=== PATIENT | female | born 1990 | race Two or more races ===

== ENCOUNTER 2025-03-02 10:05 | Outpatient (AMB) | payer OTHER, SELFPAY ==
--- NOTE | 2025-03-02 10:14 | A.OFFPC_ITS ---
Vital Signs 03/02/25 10:19 Height 5 ft 11 in Weight 244 lb BMI 34.0 BP 120/82 Blood Pressure Location Lt brachial Position Sitting Pulse 70 Pulse Source Pulse Oximeter Temp 98.2 F Temp Source Temporal Artery Scan Pulse Oximetry (%) 97 Oxygen Delivery Method Room Air Intake Visit Reasons: New Patient Bead Picker Required: No Accompanied by: Self / Same As Patient Allergies lamotrigine Allergy (Severe, Verified 03/02/25 10:23) Hives Medication List - Last Reconciled 03/02/25 by Lorene Araiza MD ibuprofen (IBU) 600 mg PO Q6H Tobacco use date assessed: 03/02/25 Dental Screening Dental Screen Date: 03/02/25 Did you have a dental visit in the last 12 months?: Yes Did you have a dental problem in the last 6 months where you did not have access to dental care?: No HPI HPI Comments History of Present Illness Details The patient is a 35 year old female presenting with evaluation of [id number] low back pain with sciatica and to establish care. Low back pain with sciatica: The patient reports an acute exacerbation of low back pain that started about a month ago after she stepped off a ladder incorrectly while painting. She has a history of right-sided sciatica, which had been successfully managed with hourly caregiver for about a year and a half. Following the recent incident, her pain worsened to the point where she could not walk, leading to an emergency room visit at [facility], where she was diagnosed with piriformis syndrome, advised bed rest, and told to take ibuprofen and Tylenol. As her condition continued to worsen, she went to [facility] on , where she received steroids and Valium. Her current symptoms include difficulty with stairs, a pinching sensation when stepping forward, and numbness in her leg after sitting for a period or sleeping on her side. She reports a pain score of 4 out of 10 at baseline which is tolerable. She had an x-ray at an ortho urgent care which reportedly showed some spine curvature and degeneration. For pain management she has been taking ibuprofen every six hours since the which she has taken in combination with Tylenol in the past, and she has seen her chiropractor three times since the injury. She also finds relief with alternating ice and heat, and is taking fish oil, magnesium, and turmeric, as well as doing red light therapy. Severe eczema: The patient reports a history of severe eczema, which is her main active medical issue aside from the back pain. She has identified that nuts and carbohydrates can trigger breakouts and she manages this by limiting her intake of these foods. She usually manages flare-ups with hydrocortisone. History of herpes simplex virus: The patient is positive for herpes, which she contracted at age 19. She reports she has not had a breakout in years. History of ruptured vaginal cyst: While on vacation in [place], she experienced a ruptured vaginal cyst/gland, for which she was treated in an emergency room with IV antibiotics and Motrin. She had noticed a small bump that grew larger before it burst. She did not have a follow-up appointment as the issue resolved. Family History: - Ovarian cancer: Two maternal aunts. - Breast cancer: One maternal aunt, dece ased. - Mother: Healthy, had a benign breast l ump. - Father: Described as being in [facility], now . - Maternal grandmother: Has diabetes. [facility] Medical History (Updated 03/03/25 @ 08:31 by Lorene Araiza MD) Eczema Elevated white blood cell count Lumbar degenerative disc disease Back pain of lumbar region with sciatica Family History (Updated 03/02/25 @ 10:52 by Lorene Araiza MD) Mother No problems noted. Father No problems noted. Maternal Aunt Ovarian cancer Breast cancer Social History Housing: House Patient Tobacco Use Status: Never used Tobacco e-Cigarette/Vaping Use: Never Used service: No Current occupational status: employed Cognitive needs: No Hearing needs: No Vision needs: No Questionnaire PHQ-9 Over the last 2 weeks, how often have you been bothered by any of the following problems? 1. Little interest or pleasure in doing things: not at all 2. Feeling down, depressed, or hopeless: not at all 3. Trouble falling or staying asleep, or sleeping too much: not at all 4. Feeling tired or having little energy: not at all 5. Poor appetite or overeating: not at all 6. Feeling bad about yourself - or that you are a failure or have let yourself or your family down: not at all 7. Trouble concentrating on things, such as reading the newspaper or watching television: not at all 8. Moving or speaking so slowly that other people could have noticed. Or the opposite - being so fidgety or restless that you have been moving around a lot more than usual: not at all 9. Thoughts that you would be better off or of hurting yourself in some way: not at all Total score: 0 Depression Screening Interpretation: Negative Depression Screening Done: Yes Source: Developed by Drs. Oscar Cobb, Lucia Perla, Josh howard nd colleagues, with an educational abby from [employer]. Thrive Questionnaire Date Thrive assessed: 03/02/25 I am a: Patient What is your living situation today?: I have a steady place to live Within the past 12 months, did the food you bought not last and you didn't have the money to get more?: Never true Within the past 12 months, did you worry whether your food would run out before you got money to buy more?: Never true Do you have trouble paying for medicines?: No Do you have trouble getting transportation to medical appointments?: No Do you have trouble paying your heating and electricity bill?: No Do you have trouble taking care of your child, family member or friend?: No Do you have trouble with day-to-day activities such as bathing, preparing meals, shopping, managing finances, etc.?: No Are you currently unemployed and looking for a job?: No Are you interested in more education?: No Please select the resources that you would like help with: None Currently or been in a relationship where the following occur: No concerns reported THRIVE Score: 0 AUDIT C Alcohol Use Questionnaire (AUDIT-C) 1. How often do you have a drink containing alcohol?: Monthly or less 2. How many drinks containing alcohol do you have on a typical day when you are drinking?: 1 or 2 3. How often do you have six or more drinks on one occasion?: Never Total Score: 1 STACIE-7 AMB Questionnaire STACIE-7 Date STACIE - 7 assessed: 03/02/25 Feeling nervous, anxious, or on edge: 0 = Not at all Not being able to stop or control worryin = Not at all Worrying too much about different things: 0 = Not at all Trouble relaxin = Not at all Being so restless that it is hard to sit still: 0 = Not at all Becoming easily annoyed or irritable: 0 = Not at all Feeling afraid as if something awful might happen: 0 = Not at all Total STACIE-7 score (0-4 normal; 5-9 mild; 10-14 moderate; 15-21 severe): 0 Source: Developed by Drs. Oscar Cobb, Lucia Perla, Josh Payton and colleagues, with an educational abby from [employer]. Review of Systems Narrative Review of Systems - General: Reports feeling in good health overall. - GI: Denies abdominal discomfort despite ibuprofen use. - : per hpi Skin: Reports flare-ups of eczema triggered by nuts and carbohydrates. - Psychiatric: Denies current issues with mood; reports history of depression in early teens/20s, which is now resolved. - Musculoskeletal: per hpi - Neurological: Reports numbness in her leg after sitting or sleeping on her si de. Physical exam (Primary Care) Vital Signs: Last Vital Signs Temp 98.2 F 03/02/25 10:19 Pulse 70 03/02/25 10:19 BP 120/82 03/02/25 10:19 Pulse Ox 97 03/02/25 10:19 Oxygen Delivery Method Room Air 03/02/25 10:19 BMI result Body Mass Index 34.0 Tobacco/Smoking Status: Tobacco use Status Tobacco use date assessed 03/02/25 03/02/25 10:15 Patient Tobacco Use Status Never used Tobacco 03/02/25 10:25 e-Cigarette/Vaping Use Never Used 03/02/25 10:15 PHQ-9: PHQ-9 Score PHQ-9: Total score 0 03/02/25 10:25 Depression Screening Interpretation: Negative Thrive Assessment: Date of Thrive Assessment Date Thrive assessed 03/02/25 03/02/25 10:15 Currently or been in a relationship where the following occur: No concerns reported Narrative Physical Exam - Cardiovascular: Regular rate and rhythm, soft murmur noted. - Respiratory: Lungs are clear to auscultation bilaterally, no wheezing. - Abdomen: Non-tender to palpation, normal bowel sounds. - Musculoskeletal: Straight leg raise is severely limited on the left, eliciting a pinching sensation. On the right, range of motion is greater but still limited and elicits a pulling sensation. Coding Level of Care Code New Pt Level 4 (92048) Add On Problem Visit Only Diagnoses Back pain of lumbar region with sciatica M54.40 Eczema, unspecified type L30.9 Eczema type: unspecified Assessment & Plan Assessment & Plan (1) Back pain of lumbar region with sciatica: Code(s): M54.40 - Lumbago with sciatica, unspecified side Category: Medical (2) Eczema: Code(s): L30.9 - Dermatitis, unspecified Category: Medical Qualifiers: Eczema type: unspecified Qualified Code(s): L30.9 - Dermatitis, unspecified Plan Assessment and Plan 1. Low Back Pain with Sciatica - The patient's presentation with qvreb-mu-[id number] low back pain, radicular symptoms including numbness, positive straight leg raise. - The plan is to confirm the diagnosis and guide further management. - A lumbar spine X-ray will be performed today to get baseline bone imaging on file. - An MRI of the lumbar spine will be ordered to definitively evaluate for disc pathology. - A referral will be placed to pain management for an initial consultation while awaiting the MRI results. - For pain control, it is recommended to stagger Tylenol Arthritis (acetaminophen 650mg) with meals and use ibuprofen 600mg in between, to reduce reliance on ibuprofen. - The patient will continue with adjunctive therapies including alternating heat/ice, seeing her chiropractor, taking fish oil, magnesium, and turmeric, and red light therapy. - Referral to an in-house spine surgeon will be facilitated if indicated by imaging and pain management assessment. 2. Eczema - The patient has a history of severe eczema managed with trigger avoidance (nuts, carbohydrates) and topical hydrocortisone. - She is managing it well. - She will continue her current management strategies. 3. Health Maintenance - To establish care, non-fasting labs including a CBC, CMP and TSH will be drawn today. - A future order for a fasting lipid panel will be placed. - The patient will follow up with her freight tallier at [facility] for r outine care and to evaluate the history of a ruptured vaginal cyst. - She is advised to obtain and provide records from her last Pap smear. 4. Heart Murmur - A new soft heart murmur was incidentally found on exam. - This is a common finding and currently asymptomatic. - The patient was educated on symptoms to watch for, including shortness of breath, chest pain, or decreased exercise tolerance, which would warrant an echocardiogram. - No immediate workup is needed. Plan - Will order a lumbar spine X-ray to be done today. - Will order an MRI of the lumbar spine to evaluate for suspected disc herniation and nerve impingement. - Will send a referral to the in-house pain management service for consultation. - Recommend alternating Tylenol Arthritis (acetaminophen 650mg) with meals and ibuprofen 600mg between meals for pain management, to reduce overall ibuprofen use. - The patient can continue adjunctive therapies including hourly caregiver, alternating heat and ice, and her current supplements (fish oil, magnesium, turmeric) and red light therapy. - Will obtain non-fasting labs today, including a CMP to check kidney and liver function, a CBC, and a TSH level. A future order will be placed for a fasting cholesterol panel. - Advised the patient to follow up with her freight tallier at [facility] for routine care and evaluation. - Follow up in 3 months for physical i Patient Instructions - For pain, you can take Tylenol Arthritis (650 mg) with breakfast, lunch, and dinner. You may take ibuprofen (such as Advil or Motrin, 600 mg) in between those doses as needed for extra pain relief. - Continue your current home care, including applying ice and heat to your back for 20 minutes at a time and visiting your chiropractor. - It is fine to continue taking your supplements (fish oil, magnesium, turmeric) - We will get an x-ray of your lower back today. We are also ordering an MRI of your lower back and will refer you to see a painting trades worker. Orders: Orders Comprehensive Met. Panel 03/02/25 M54.40 - Lumbago with sciatica, unspecified side LDL Cholesterol Direct 03/02/25 M54.40 - Lumbago with sciatica, unspecified side TSH reflex Free T4 03/02/25 M54.40 - Lumbago with sciatica, unspecified side XR lumbar spine 2-3V 03/02/25 M54.40 - Lumbago with sciatica, unspecified side Complete Blood Count Auto Diff 03/02/25 M54.40 - Lumbago with sciatica, unspecified side Medications: New acetaminophen ER (Arthritis Pain Relief (acetaminophen) ER) 1,300 mg (2 x 650 mg) PO TID 90 tabs 4RF
[2025-03-02 10:19] VITALS: BP 120/82; PULSE 70; TEMP 36.8; O2SAT 97; BMI 34.0
== END 2025-03-02 11:10 | disposition home or self-care (01) ==
LOC: HO.HMCHD 10:06
PROVIDERS: PCP Internal Medicine; Visit Provider Internal Medicine
DX: M54.40 Lumbago with sciatica, unspecified side (principal); L30.9 Dermatitis, unspecified

== ENCOUNTER 2025-03-02 10:05 | Outpatient (REF) | payer OTHER, SELFPAY ==
--- NOTE | ~2025-03-02 | XR_ITS ---
EXAMINATION: XR LUMBOSACRAL SPINE CLINICAL INFORMATION: M54.40 - Lumbago with sciatica, unspecified side COMPARISON: None available. TECHNIQUE: Three views of the lumbosacral spine. FINDINGS: No significant scoliosis. Normal lordosis. No subluxations. No fracture, compression deformity, or suspicious bone lesion. There is normal facet alignment. There are mild hypertrophic degenerative facet changes at L4-5. Moderate to severe disc degeneration is present focally at L4-5. Mild changes at L5-S1. Disc spaces otherwise preserved. The sacrum and SI joints appear normal. No soft tissue abnormalities. XR/XR lumbar spine 2-3V IMPRESSION: Degenerative disc and facet disease relatively confined to L4-5. Electronically signed by: Brandon Romano MD 03/02/2025 12:09 PM SEBAST[facility] OLSON
[2025-03-02 11:39] LABS: MANUAL DIFF FLAG NO
[2025-03-02 11:44] LABS: Hematocrit 40.9 % (37.0-47.0); Hemoglobin 14.1 g/dl (12.0-16.0); Imm Gran Abs Auto 0.12 X10*3/uL (0.00-0.03); Imm Gran Pct Auto 0.8 % (0.0-0.4); Lymphocytes Absolute Auto 1.4 X10*3/uL (1.2-4.9); Mean Corpuscular HGB Conc 34.5 g/dl (31.0-35.0); Mean Corpuscular Hemoglobin 31.6 pg (27.0-33.0); Mean Corpuscular Volume 91.7 fL (80.0-98.0); NRBC Abs Auto 0.000 X10*3/uL (0.0-0.012); NRBC Pct Auto 0.0 /100WBC (0.0-0.2); Platelet Count 263 X10*3/uL (160-400); Red Blood Count 4.46 X10*6/uL (4.20-5.50); White Blood Count 14.6 X10*3/uL (4.8-10.8)
[2025-03-02 12:13] LABS: Alanine Aminotransferase 20 U/L (0-31); Albumin Level 4.6 g/dL (3.5-5.0); Alkaline Phosphatase 54 U/L (39-117); Anion Gap 11 (12-20); Aspartate Amino Transferase 24 U/L (5-31); Blood Urea Nitrogen 12 mg/dL (9-16); Calcium 9.4 mg/dL (8.4-10.2); Carbon Dioxide 28 mmol/L (22-29); Chloride 103 mmol/L (96-108); Estimated Glomerular Filt Rate > 60; Potassium 4.1 mmol/L (3.3-5.1); Sodium 138 mmol/L (135-145); Total Protein 8.3 g/dL (6.5-8.0)
== END 2025-03-02 10:06 | disposition home or self-care (01) ==
LOC: HO.LAB 10:05
PROVIDERS: PCP Internal Medicine; Visit Provider Internal Medicine
DX: M54.40 Lumbago with sciatica, unspecified side (principal); L30.9 Dermatitis, unspecified
CPT/HCPCS: 36415; 72100; 80053; 83721; 84443; 85025; 99202

== ENCOUNTER → 2025-03-02 11:39 | Outpatient (BNV) | payer OTHER, SELFPAY | PROVIDERS: PCP Internal Medicine; Visit Provider Radiology Diagnostic Radiology | DX: M54.40 Lumbago with sciatica, unspecified side (principal); M51.369 Other intervertebral disc degeneration, lumbar region without mention of lumbar back pain or lower extremity pain | CPT/HCPCS: 72100 ==

== ENCOUNTER 2025-03-10 09:05 | Outpatient (AMB) | payer OTHER, SELFPAY ==
--- NOTE | 2025-03-10 09:12 | A.OFFVIS_ITS ---
Vital Signs 03/10/25 09:14 Height 5 ft 11 in Weight 245 lb BMI 34.2 BP 158/84 H Blood Pressure Location Lt brachial Position Sitting Respiration 5 L Pulse 78 Pulse Source Pulse Oximeter Pulse Oximetry (%) 97 Oxygen Delivery Method Room Air Intake Visit Reasons: Lumbago w/ Sciatica Photo Tube Assembler Required: No Allergies lamotrigine Allergy (Severe, Verified 03/10/25 09:15) Hives Medication List - Last Reconciled 03/10/25 by Alma Delia Dukes LPN acetaminophen ER (Arthritis Pain Relief (acetaminophen) ER) 1,300 mg (2 x 650 mg) PO TID ibuprofen (IBU) 600 mg PO Q6H HPI Comments Details: History of Present Illness The patient is a 35-year-old female presenting for evaluation of lower back pain with sciatica. 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 The onset was sudden, progressing to an inability to walk within two days, which prompted a hospital visit. A lumbar spine X-ray revealed significant degenerative disc disease at L4-L5 and L5-S1. Previous consultations with an orthopedic doctor and Dr. Torres suggested early signs of arthritis. She has been managing her symptoms with Tylenol for arthritis, 650 mg three times per day, as prescribed by Dr. Torres. She has also received chiropractic treatment for a year and a half, with three sessions since this injury, which has provided some pain alleviation. The patient has never had physical therapy. Her past activities include playing basketball in high school. 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 Pain Description - Onset: The pain started acutely about one month ago, in January. - Location and Radiation: The pain originates in the lower back and radiates down the left leg to the ankle. - Intensity: The pain is rated 5/10 at baseline in the mornings, increases to 7- 8/10 at night, and is 4-5/10 when she is inactive. - Quality: The patient reports feeling a pinchedness. - Associated Symptoms: The patient experiences numbness in her left leg when sitting and driving. - Interference with Function: The pain interferes with her ability to sleep normally, get comfortable, and perform her daily activities. 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 Physical Exam - Musculoskeletal: Straight leg raise is positive on the left, eliciting thigh pain. Results - Imaging: - Lumbar Spine X-ray: Showed significant degenerative disc disease at L4-5 and L5-S1. Pain Management: - Affect: The patient reports feeling frustrated and that her sleep has become miserable due to the pain. - Analgesia: Current medications include Tylenol 650 mg three times daily. - Activities of Daily Living: The pain and associated numbness in her leg interfere with her ability to perform daily activities, sleep, and drive. - Adverse Effects: No adverse effects from medication were discussed. - Aberrant Drug-Related Behaviors: No aberrant drug-related behaviors were discussed. [facility] Medical History (Updated 03/03/25 @ 08:31 by Lorene Araiza MD) Eczema Elevated white blood cell count Lumbar degenerative disc disease Back pain of lumbar region with sciatica Family History (Updated 03/02/25 @ 10:52 by Lorene Araiza MD) Mother No problems noted. Father No problems noted. Maternal Aunt Ovarian cancer Breast cancer Social History Housing: House Patient Tobacco Use Status: Never used Tobacco e-Cigarette/Vaping Use: Never Used service: No Current occupational status: employed Cognitive needs: No Hearing needs: No Vision needs: No Physical Exam Vital Signs: Last Vital Signs Pulse 78 03/10/25 09:14 Resp 5 L 03/10/25 09:14 BP 158/84 H 03/10/25 09:14 Pulse Ox 97 03/10/25 09:14 Oxygen Delivery Method Room Air 03/10/25 09:14 BMI result Body Mass Index 34.2 Assessment & Plan Assessment & Plan (1) Back pain of lumbar region with sciatica: Code(s): M54.40 - Lumbago with sciatica, unspecified side Category: Medical (2) Lumbar degenerative disc disease: Code(s): M51.369 - Other intervertebral disc degeneration, lumbar region without mention of lumbar back pain or lower extremity pain Category: Medical Plan Plan Patient was informed and verbally consented to the use of an ambient scribe for clinic note documentation during this visit. 1. Degenerative Disc Disease Of Lumbar Spine With Sciatica - The patient's X-ray findings of degenerative disc disease at L4-L5 and L5-S1 are advanced for her age and are the likely cause of her symptoms. - This is a chronic condition that has been developing over a long period. - The primary long-term solution is physical therapy focused on core strengthening, which will be a lifelong commitment. - Referral to physical therapy for core strengthening exercises and stretches. - The patient is advised this is a lifelong routine, requiring 20 minutes in the morning and 20 minutes in the evening. - An MRI of the lumbar spine will be ordered to establish a baseline, but the patient was informed that insurance will likely deny it without 6 weeks of documented physical therapy. - The patient should complete 6-8 weeks of physical therapy and then call to have the MRI order placed if she is still experiencing significant pain. - Cortisone injections were discussed as a possibility for temporary relief of acute pain but are not recommended at this time. - Follow up in the office after the MRI is completed only if her pain has not improved. Discussion Notes I explained to the patient that her lumbar spine X-ray shows significant degenerative disc disease at L4-5 and L5-S1, which is advanced for a person of her age. I emphasized that this is a chronic issue that has been developing for a long time and that chiropractic manipulation, while offering some acute relief, is not a long-term solution. I educated her that the only effective long-term treatment and prevention strategy is a lifelong commitment to physical therapy, specifically core strengthening exercises and stretching, which she should perform twice daily. We discussed her desire for an MRI, and I explained that while we will order it to establish a baseline, obtaining it sooner will not change the immediate treatment plan, which is physical therapy. I clarified that her insurance will require 6 weeks of physical therapy before they will approve the MRI. We discussed cortisone injections as a future option for acute flare-ups but agreed to defer this treatment in favor of conservative management with physical therapy first. I instructed her to complete 6-8 weeks of physical therapy and then call our office to proceed with the MRI if her pain persists, and to follow up with me after the MRI only if she is not improving. Patient Instructions - You are to begin physical therapy (PT). - You should use the referral order you already have from your orthopedic doctor. - The goal of PT is to learn core strengthening exercises and stretches that you can do at home. - This exercise program is a lifelong commitment to manage your back condition. You should perform the exercises for about 20 minutes in the morning and 20 minutes in the evening. - You can look up the YouTube channel [employer] for examples of physical therapy stretches for leg pain relief. - After you have done physical therapy for 6 to 8 weeks, call our office to arrange for an MRI if your pain is still a problem. - If your pain gets better with PT and exercises, you do not need to come back for a follow-up visit and should continue your home exercise program. - If your pain is not better after the MRI, please schedule a follow-up appointment to see me. Orders: Orders PT Evaluation and Treatment 03/10/25 M51.369 - Other intervertebral disc degeneration, lumbar region without mention of lumbar back pain or lower extremity pain, M54.40 - Lumbago with sciatica, unspecified side Coding Level of Care Code New Pt Level 4 (67256) Diagnoses Back pain of lumbar region with sciatica M54.40 Lumbar degenerative disc disease M51.369
[2025-03-10 09:14] VITALS: BP 158/84; PULSE 78; RESP 5; O2SAT 97; BMI 34.2
--- OUTSIDE RECORDS SUMMARY | 2025-03-10 09:31 | XMS_ITS | Clinical Summary ---
Author Organization [facility] Address [address] [place] [address] Care Team Providers Care Acid Mixer Name Role Phone Ref, Hasnopcp Primary Care Provider Unavailabl e Allergies No known active allergies Social History Tobacco Use Types Packs/Day Years Used Date Smoking Tobacco: Never Smokeless Tobacco: Never Tobacco Cessation:Counseling Given: Not Answered Alcohol Use Standard Drinks/Week Comments Never 0 (1 standard drink = 0.6 oz pur e alcohol) Comments No Sex and Gender Information Value Date Recorded Sex Assigned at Female 07/15/2024 1:34 PM EDT Legal Sex Female 1:33 PM EDT Gender Identity Not on file Sexual Orientation Not on file Last Filed Vital Signs Vital Sign Reading Time Taken Comments Blood Pressure 131/71 07/15/2024 1:57 PM EDT Pulse 70 07/15/2024 1:57 PM EDT Temperature 36.6 C (97.8 F) 07/15/2024 1:57 PM EDT Respiratory Rate 17 07/15/2024 1:57 PM EDT Oxygen Saturation 100% 07/15/2024 1:57 PM EDT Inhaled Oxygen Concentration - - Weight 108 kg (238 lb) 07/15/2024 1:57 PM EDT Height - - Body Mass Index - - Plan of Treatment Health Maintenance Due Date Last Done Comments HIV Screening 1990 Hepatitis C Screening 1990 Varicella Vaccines (1 of 2 - 13+ 2-dose series) 2003 Pneumococcal Vaccine: Pediat greg (0-5 Years) and At-Risk Patients (6-50 Years) (1 of 2 - PCV) 2009 Alcohol/Substance Use Screening 03/23/2024 Depression Screening and Follow-Up 03/23/2024 Social Drivers of Health Lety ual Screening 03/23/2024 Influenza Vaccine (#1) 2024 2, 04/29/2010, 11/29/2008, Additional history exists COVID-19 Vaccine (3 2024-2 6 season) 2024 09/13/2020, 08/16/2020 Pap Smear 10/11/2026 10/12/2023 Cervical Cancer Screening 10/11/2028 HPV and Pap Smear 10/11/2028 10/12/2023 DTaP,Tdap,and Td Vaccines (9 - Td or Tdap) 11/13/2029 11/14/2019, 05/07/2017, 11/29/2008, Additional history exists Hepatitis B Vaccines Completed 07/20/2001, 07/27/2000, 11/08/1998, Additional history exists Insurance [facility] Care Teams Acid Mixer Relationship Specialty Start Date End Date Ref, Hasnopcp DO NOT EDIT THIS RECORD VIA PROVIDER ON THE FLY PCP - General 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
--- OUTSIDE RECORDS SUMMARY | 2025-03-10 09:31 | XMS_ITS | Clinical Summary ---
Author Organization [facility] iance Address [address] [place] [address] Care Team Providers Care Senior It Recruiter Name Role Phone Chanel Roblero MD Primary Care Provider [phone] Dale Schmitz MD Unavailable [phone] Allergies Active Allergy Reactions Criticality Noted Date Comments Lamotrigine Hives 08/14/2014 Latex Other (See Comments) 11/21/2013 Medications HYDROCORTISONE, TOPICAL, EX Apply Topically. Active ACYCLOVIR PO Take by mouth. Active Immunizations Immunization Administration Dates Next Due Tdap 11/14/2019 Social History Tobacco Use Types Packs/Day Years Used Date Smoking Tobacco: Never Alcohol Use Standard Drinks/Week Comments No 0 (1 standard drink = 0.6 oz pur e alcohol) Comments No Sex and Gender Information Value Date Recorded Sex Assigned at Not on file Legal Sex Female 7:20 PM EDT Gender Identity Not on file Sexual Orientation Not on file Last Filed Vital Signs Vital Sign Reading Time Taken Comments Blood Pressure 126/76 11/14/2019 7:44 AM EDT Pulse 95 11/14/2019 7:44 AM EDT Temperature 36.8 C (98.3 F) 11/14/2019 7:44 AM EDT Respiratory Rate 16 11/14/2019 7:44 AM EDT Oxygen Saturation 99% 11/14/2019 7:44 AM EDT Inhaled Oxygen Concentration - - Weight 113.4 kg (250 lb) 11/14/2019 7:44 AM EDT Height - - Body Mass Index - - Plan of Treatment Health Maintenance Due Date Last Done Comments Cervical Cancer Screening 1990 Contraceptive Care Screening 1990 HPV SCREENING 1990 PAP SMEAR 1990 HIV SCREENING 2003 AWQ Questionnaire 01/21/2008 HEALTH CARE PROXY 01/21/2008 HEP C SCREEN 01/21/2008 LIPID SCREENING 01/21/2008 PHYSICAL EXAM 01/21/2012 COVID-19 Vaccine ( season) 2024 09/13/2020, 08/16/2020 INFLUENZA VACCINE (#1) 2024 2, 04/29/2010, 11/29/2008, Additional history exists TETANUS VACCINE (9 - Td or Tdap) 11/13/2029 11/14/2019, 05/07/2017, 11/29/2008, Additional history exists ZOSTER VACCINE (1 of 2) 01/21/2040 HPV VACCINE SERIES Completed 09/19/2008, 0 04/24/2008, 11/30/2007 MENINGOCOCCAL (MCV4) VACCINE SERIES Completed 11/29/2008 MENINGOCOCCAL B VACCINE SERIES Aged Out No longer eligible based on patient's age to complete this topic PNEUMOCOCCAL VACCINE SERIES Aged Out No longer eligible based on patient's age to complete this topic Insurance [address] [place] [address] Care Teams Senior It Recruiter Relationship Specialty Start Date End Date Chanel Roblero MD PCP - General 08/14/14 Dale Schmitz MD [address] [place] [id number] PCP - Insurance PCP 09/30/15
--- OUTSIDE RECORDS SUMMARY | 2025-03-10 09:32 | XMS_ITS | Encounter Summary ---
Author Organization [facility] Address [address] [place] [address] Care Team Providers Care Veneer Sawyer Name Role Phone Michelle Santiago MD Primary Care Provider [phone] Encounter Details Date Type Department Care Team ([facility] st Contact Info) Description 07/23/2023 Orders Only [facility] Otolaryngology [address] [phone] Carlos Carlson MD [address] [place] [address] Social History Tobacco Use Types Packs/Day Years Used Date Smoking Tobacco: Never Smokeless Tobacco: Never Alcohol Use Standard Drinks/Week Comments Not Currently 0 (1 standard drink = 0.6 oz pur e alcohol) Comments No Sex and Gender Information Value Date Recorded Sex Assigned at Female 04/27/2023 12:19 PM EST Legal Sex Female 12:16 PM EST Gender Identity Female 04/27/2023 12:19 PM EST Sexual Orientation Straight 06/11/2023 9: 38 AM EDT documented as of this encounter Miscellaneous Notes * Result Encounter Note - Lulu Parson MD - 07/23/2023 9:41 AM EDT Please let patient know that her allergy blood work for foods including nuts, cacao, etc is all negative. If she has further questions, she may follow up with Dr. Carlson when he returns next week. Thank you! * Result Encounter Note - Iman Morin RN - 07/23/2023 9:41 AM EDT T/c, spoke with Lia cardenas providers note. She has no further questions at this time. She will call our office with any questions and or concerns. Offered f/u OV, declines at this time,she has f/u with PCP documented in this encounter Plan of Treatment Not on file documented as of this encounter Procedures * Due to [place] [employer] law, this organization might not be sharing negative HIV tests. Procedure Name Priority Date/Time Associated Diagnosis Comments TREE NUT ALLERGY PANEL WITH REFLEX TO COMPONENTS(ALMOND, BRAZIL,CASHEW,SPENCER NUT,MACADAMIA,PEANU T,PECAN,PISTACHIO,W ALNUT) Routine 07/23/2023 9:41 AM EDT Rash CACAO (F93) IGE Routine 07/23/2023 9:41 AM EDT Rash FOOD (GENERAL) ALLERGY PANEL Routine 07/23/2023 9:41 AM EDT Rash COFFEE (F221) IGE Routine 07/23/2023 9:4 1 AM EDT Rash documented in this encounter Results * Due to [place] [employer] law, this organization might not be sharing negative HIV tests. * FOOD (GENERAL) ALLERGY PANEL (07/23/2023 9:41 AM EDT) Egg White (F1) IgE <0.10 kU/L [facility] 0 [facility] Milk (F2) IgE <0.10 kU/L [facility] 0 [facility] Codfish (F3) IgE <0.10 kU/L [facility] 0 [facility] Wheat (F4) IgE <0.10 kU/L [facility] 0 [facility] Peanut (F13) IgE <0.10 kU/L [facility] 0 [facility] Soybean (F14) IgE <0.10 kU/L [facility] 0 [facility] Crab (F23) IgE <0.10 kU/L [facility] 0 [facility] Shrimp (F24) IgE <0.10 kU/L [facility] 0 [facility] Tuna (F40) IgE <0.10 kU/L [facility] 0 [facility] 07/23/2023 9:41 AM EDT 07/23/2023 10:02 PM EDT Narrative Resulting Agency Comment [id number] Carlos Carlson MD LABORATORY Final Result Performing Organization Address City/[facility]/ZIP Co de Phone Number [facility] [address] [phone] * COFFEE (F221) IGE (07/23/2023 9:41 AM EDT) Coffee (F221) IgE <0.10 kU/L [facility] Comment: INTERPRETATION SPECIFIC LEVEL OF ALLERGEN IGE CLASS kU/L SPECIFIC IGE ANTIBODY -------- --------- 0 <0.10 ABSENT/UNDETECTABLE 0/1 0.10-0.34 VERY LOW LEVEL 1 0.35-0.69 LOW LEVEL 2 0.70-3.49 MODERATE LEVEL 3 3.50-17.4 HIGH LEVEL 4 17.5-49.9 VERY HIGH LEVEL 5 50-100 VERY HIGH LEVEL 6 >100 VERY HIGH LEVEL The clinical relevance of allergen results of 0.10-0.34 kU/L are undetermined and intended for specialist use. Allergens denoted with a include results using one or more analyte specific reagents. In those cases, the test was developed and its analytical performance characteristics have been determined by [employer] It has not been cleared or approved by the U.S. Food and Drug Administration. This assay has been validated pursuant to the CLIA regulations and is used for clinical purposes. 07/23/2023 9:41 AM EDT 07/23/2023 10:02 PM EDT Narrative Resulting Agency Comment [id number] Carlos Carlson MD LABORATORY Final Result Performing Organization Address City/[facility]/ZIP Co de Phone Number [facility] [address] [place] [address] * CACAO (F93) IGE (07/23/2023 9:41 AM EDT) [place] (Chocolate) (F93) IgE <0.10 kU/L [facility] 0 [facility] 07/23/2023 9:41 AM EDT 07/23/2023 10:02 PM EDT Narrative Resulting Agency Comment [id number] Carlos Carlson MD LABORATORY Final Result [facility] [address] [place] [address] * TREE NUT ALLERGY PANEL WITH REFLEX TO COMPONENTS(ALMOND, BRAZIL,CASHEW,HAZELNUT,MACADAMIA,PEANUT,PECAN,PISTACHIO,WALNUT) (07/23/2023 9:41 AM EDT) Macadamia spp Ab.IgE <0.10 kU/L [facility] 0 [facility] Pecan Nut (F201) IgE <0.10 kU/L [facility] 0 [facility] [place] Nut (F18) IgE <0.10 kU/L [facility] [place] (F256) IgE <0.10 kU/L [facility] Cashew Nut (F202) IgE <0.10 kU/L [facility] 0 [facility] Pistachio (F203) IgE <0.10 kU/L [facility] 0 [facility] Hazelnut (F17) IgE <0.10 kU/L [facility] 0 [facility] [place] (F20) IgE <0.10 kU/L [facility] 0 [facility] Peanut (F13) IgE <0.10 kU/L [facility] 0 [facility] 07/23/2023 9:41 AM EDT 07/23/2023 10:01 PM EDT Narrative Resulting Agency Comment [id number] Carlos Carlson MD LABORATORY Final Result Performing Organization Address City/[facility]/ZIP Co de Phone Number [facility] [address] [place] [address] documented in this encounter Visit Diagnoses Diagnosis Rash Rash and other nonspecific skin eruption documented in this encounter Care Teams Veneer Sawyer Relationship Specialty Start Date End Date Michelle Santiago MD [address] [place] [address] PCP - General Family Medicine 04/27/23 documented as of this encounter
--- OUTSIDE RECORDS SUMMARY | 2025-03-10 09:32 | XMS_ITS | Encounter Summary ---
Author Organization [facility] Address [address] [place] [address] Care Team Providers Care Body Hanger Name Role Phone Michelle Santiago MD Primary Care Provider [phone] Encounter Details Date Type Department Care Team (Late st Contact Info) Description 04/01/2024 Orders Only [facility] [address] [place] [phone] Michelle Santiago MD [address] [place] [id number] Social History Tobacco Use Types Packs/Day Years Used Date Smoking Tobacco: Never Passive Smoke Exposure: Never Smokeless Tobacco: Never Alcohol Use Standard Drinks/Week Comments Not Currently 0 (1 standard drink = 0.6 oz pur e alcohol) PHQ-2 Answer Date Recorded Patient Health Questionnaire-2 Score 0 10/12/2023 Comments No Sex and Gender Information Value Date Recorded Sex Assigned at Female 04/27/2023 12:19 PM EST Legal Sex Female 12:16 PM EST Gender Identity Female 04/27/2023 12:19 PM EST Sexual Orientation Straight 06/11/2023 9: 38 AM EDT documented as of this encounter Miscellaneous Notes * Result Encounter Note - Michelle Santiago MD - 04/01/2024 1:40 PM EST Normal/Stable MyChart message sent to patient automatically by [employer] documented in this encounter Plan of Treatment Not on file documented as of this encounter Procedures * Due to [place] state law, this organization might not be sharing negative HIV tests. Procedure Name Priority Date/Time Associated Diagnosis Comments SYPHILIS (FTA) ANTIBODY CASCADING REFLEX TO RPR/TITER (*PREFERRED SCREEN*) Routine 04/01/2024 1:41 PM EST Screen for sexually transmitted diseases CHLAMYDIA TRACHOMATIS/N. GONORRHOEAE (GC) RNA, TMA (URINE) Routine 04/01/2024 1:41 PM EST Screen for sexually transmitted diseases documented in this encounter Results * Due to [place] [employer] law, this organization might not be sharing negative HIV tests. * CHLAMYDIA TRACHOMATIS/N. GONORRHOEAE (GC) RNA, TMA (URINE) (04/01/2024 1:41 PM EST) Chlamydia trachomatis rRNA NOT DETECTED NOT DETECTED [facility] Neisseria Gonorrhoeae rRNA NOT DETECTED NOT DETECTED [facility] COMMENT SEE NOTE [facility] Comment: The analytical performance characteristics of this assay, when used to test SurePath(TM) specimens have been determined by [employer]. The modifications have not been cleared or approved by the FDA. This assay has been validated pursuant to the CLIA regulations and is used for clinical purposes. For additional information, please refer to https://education.[employer]/faq/YOF471 (This link is being provided for information/ educational purposes only.) 04/01/2024 1:41 PM EST 04/02/2024 3:47 AM EST Narrative Resulting Agency Comment [id number] Michelle Santiago MD LABORATORY Final Resul t [facility] [address] [place] [address] * SYPHILIS (FTA) ANTIBODY CASCADING REFLEX TO RPR/TITER (*PREFERRED SCREEN*) (04/01/2024 1:41 PM EST) Treponema pallidum Ab NEGATIVE NEGATIVE [facility] Comment: No antibodies to T. pallidum (the agent causing syphilis) were detected in the specimen. This result, however, does not exclude very recent T. pallidum infection; testing of a second specimen, collected 2-4 weeks after this specimen, is recommended if the index of suspicion for recent infection is high. 04/01/2024 1:41 PM EST 04/02/2024 3:47 AM EST Narrative Resulting Agency Comment [id number] Michelle Santiago MD LABORATORY Final Resul t Performing Organization Address City/State/[facility] Co de Phone Number [facility] [address] [place] [address] documented in this encounter Visit Diagnoses Diagnosis Screen for sexually transmitted diseases Screening examination for venereal disease documented in this encounter Care Teams Body Hanger Relationship Specialty Start Date End Date Michelle Santiago MD [address] [place] [address] PCP - General Family Medicine 04/27/23 documented as of this encounter
--- OUTSIDE RECORDS SUMMARY | 2025-03-10 09:32 | XMS_ITS | Clinical Summary ---
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 Vit-Fe Fumarate-FA ( Vitamins) 28-0.8 MG Tab Take by mouth 1 (one) time each day. 10/12/2023 Active Valacyclovir HCl (VALTREX) 500 MG tabletIndication s:Herpes simplex type 1 infection Take one tablet (500 mg total) by mouth 1 (one) time each day. 90 tablet 1 06/01/2024 Active Active Problems Problem Noted Date Diagnosed Date History of bipolar disorder 07/30/2023 Overview (10/12/2023): 07/30/23: history of bipolar disorder in teen years and young adulthood, used take medications, has been off meds for some time and very stable. Given current significant insomnia without depression or anxiety I am suspicious for hypomania and will refer to Liseth Diaz for psych med consult. 10/12/2023 Never had consult but feeling much better now that she is sleeping better. No current concerns. She will reach out if needed. Dyshidrotic eczema 03/17/2019 Overview (06/04/2023): 06/04/2023 bilateral hands, but recently worsening, seems triggered by foods. Referring to allergy for testing for food allergies. Reviewed frequent use of emollients, occlusion, prn steroids. Allergic rhinitis 12/12/2013 Overview (06/04/2023): 06/04/2023 managed with OTC antihistamines Herpes simplex type 1 infection 12/12/2013 Overview (06/04/2023): Hx genital herpes, type I. No flares for years. Insomnia 12/12/2013 Overview (10/12/2023): 06/04/2023 Able to fall asleep but having trouble staying asleep. Will start with decreasing evening intake of water, as she is getting up multiple times overnight. If still having trouble, will reach out for a VV. Also referring to insomnia group. 07/30/2023 Worsening insomnia. Trouble falling asleep and staying asleep, mind will not stop racing. However denies depression or anxiety. Snores and has BMI>30 so will obtain sleep study to r/o sleep apnea, however given hx bipolar disorder symptoms could actually be hypomania so will refer to Liseth Diaz for med consult. Will also refer to for CBT for insomnia. Doxylamine Rx for now, patient is trying to get so avoiding hypnotics. 10/12/2023 She reports this is much better, taking magnesium nightly. Class 1 obesity due to exces s calories without serious comorbidity with body mass index (BMI) of 32.0 to 32.9 in adult 12/12/2013 Overview (10/12/2023): Routine dietary and exercise counseling provided. Patient is aware of the adverse effects of obesity including increased risk of cardiovascular disease. Doing great on her own, lost 40lbs. Continuing to work on lifestyle changes. 10/12/2023 Improving. BMI Readings from Last 5 Encounters: 10/12/23 32.40 kg/m 06/04/23 32.49 kg/m Doing crossfit. Wt Readings from Last 6 Encounters: 10/12/23 227 lb 6.4 oz (103 kg) 06/04/23 228 lb 3.2 oz (104 kg) Vitamin D deficiency 12/12/2013 Overview (06/04/2023): 06/04/2023 not on supplements, will check level. History of abnormal cervical Pap smear 3 Overview (10/12/2023): Abnormal cervical smear; 02/09/12 - LGSIL. Normal since then. Menorrhagia 06/02/2012 Overview (10/08/2023): Menorrhagia; Followed by Manager French. See note from 04/22/12 for details. PUS unremarkable. Asthma 12/30/2006 Overview (10/08/2023): Asthma; mild intermittent, not requiring INH Resolved Problems Problem Noted Date Diagnosed Date Resolved Date Bipolar affective disorder 12/12/2013 0 06/04/2023 Overview (06/04/2023): Diagnosed at age 16. Was treated with medications and therapy until age 21 then stopped. Very stable off meds. Not in therapy right now. Abnormal results of liver function studies 08/29/2011 10/12/2023 Overview (10/12/2023): Lab Results Component Value Date PROTEINTOTAL 7.4 06/04/2023 ALBUMIN 4.4 06/04/2023 BILI 0.7 06/04/2023 ALKPHOS 43 06/04/2023 AST 18 06/04/2023 ALT 17 06/04/2023 Resolved Immunizations Immunization Administration Dates Next Due COVID-19, mRNA (Pfizer Pre F all 2022) Monovalent, 30 mcg/0.3 ml 09/13/2020,08/16/2020 DTaP - 06/04/1994, 2,1990,06/02,1990 HPV4 (Gardasil 4) 09/19/2008,04/24/2008,11/30/19 08 Hep A (pedi) 08/22/2011 Hep A - 04/29/2010 Hep B (pedi) 1990 Hep B - 07/20/2001,07/27/2000,11/08/1998 Influenza (SEASONAL) - 04/29/2010,11/29/2008,04/2008 MMR 05/05/1995,05/24/1991,1990 Meningococcal ACWY (Menactra) 11/29/2008 Polio - 06/04/1994, 2,1990,06/02,1990 Td - 07/20/2001 Tdap 11/14/2019,05/07/2017,11/29/2008 influenza,seasonal,trivalent ,PF (Fluzone, Fluarix, Flulaval) 12/24/2011 Family History Medical History Relation Name Comments Psych/Mental Health Father Diabetes Maternal grandmother high blood pressure Maternal grandmother breast lumps Mother benign Relation Name Status Comments Father Alive Maternal grandfather Alive Maternal grandmother Alive Mother Alive Paternal grandfather Alive Paternal grandmother Alive Sister 1 Alive Sister 2 Alive Sister 3 Alive Social History Tobacco Use Types Packs/Day Years Used Date Smoking Tobacco: Never Passive Smoke Exposure: Never Smokeless Tobacco: Never Tobacco Cessation:Counseling Given: Not Answered Alcohol Use Standard Drinks/Week Comments Not Currently [...] Orientation Straight 06/11/2023 9: 38 AM EDT Last Filed Vital Signs Vital Sign Reading Time Taken Comments Blood Pressure 124/75 10/12/2023 7:49 AM EDT Pulse 66 10/12/2023 7:49 AM EDT Temperature - - Respiratory Rate - - Oxygen Saturation - - Inhaled Oxygen Concentration - - Weight 103 kg (227 lb 6.4 oz) 10/12/2023 7:49 AM EDT Height 178.4 cm (5' 10.25 ) 10/12/2023 7:49 AM E DT Body Mass Index 32.4 10/12/2023 7:49 AM EDT Plan of Treatment Health Maintenance Due Date Last Done Comments Pneumococcal (1 of 2 - PCV) 2009 COVID-19 Vaccine (3 - season) 2024 09/13/2020, 08/16/2020 Influenza (#1) 2024 12/24/2011, 09/2010, 11/29/2008, Additional history exists Pap Smear 10/11/2028 10/12/2023, 09/21, 10/22/2020 DTaP/Tdap/Td (9 - Td or Tdap) 11/13/2029 11/14/2019, 05/07/2017, 11/29/2008, Additional history exists Zoster (Shingrix) (1 of 2) 01/21/2040 Hep B Completed 07/20/2001, 09/2000, 11/08/1998, Additional history exists HPV Vaccine Completed 09/19/2008, 04/2008, 11/30/2007 Meningococcal ACWY Completed 11/29/2008 Hep A Aged Out 08/22/2011, 04/29/2010 No lo nger eligible based on patient's age to complete this topic Hepatitis C Screening Completed 03/08/2015 LDL Cholesterol Discontinued 06/04/2023, 10/14/2022 HPV Testing Discontinued 10/12/2023 Physical Discontinued 10/12/2023, 10/22, 10/22/2020, Additional history exists Hib Aged Out No longer eligi ble based on patient's age to complete this topic Procedures * Due to [place] [employer] law, this organization might not be sharing negative HIV tests. Procedure Name Priority Date/Time Associated Diagnosis Comments THINPREP TIS PAP AND HPV MRNA E6/E7 REFLEX HPV 16,18/45 Routine 10/12/2023 8:30 AM EDT Screening for cervical cancer History of abnormal cervical Pap smear LIPID PANEL WITH REFLEX TO DIRECT LDL Routine 06/04/2023 8:44 AM EDT Screening, lipid from Last 3 Months or Most Recently Relevant to Health Maintenance Results * Due to [place] [employer] law, this organization might not be sharing negative HIV tests. * THINPREP TIS PAP AND HPV MRNA E6/E7 REFLEX HPV 16,18/45 (10/12/2023 8:30 AM EDT) Clinical information Routine exam 33YO W/ DISTANT LSIL PAP 2012, [facility] Date last menstrual period 09/24/2023 [facility] Date of previous PAP smear 10/22/2020 [facility] Date of previous biopsy NONE GIVEN [facility] Specimen source (Cvx/Vag) None given [facility] Statement of Adequacy (Cvx/Vag) Satisfactory for evaluation. Endocervical/escobar sformation zone component absent. [facility] Cytology, Pap Smear Cytology Results: Negative for intraepithelial lesion or malignancy. [facility] Cytology study comment (Cvx/Vag) This Pap test has been evaluated with computer assisted technology. [facility] Child Welfare Specialist (Cvx/Vag) STANISLAW LEAL(ASCP) CT screening location: [place] [address] [facility] COMMENT SEE NOTE [facility] Comment: EXPLANATORY NOTE: The Pap is a screening test for cervical cancer. It is not a diagnostic test and is subject to false negative and false positive results. It is most reliable when a satisfactory sample, regularly obtained, is submitted with relevant clinical findings and history, and when the Pap result is evaluated along with historic and current clinical information. HPV MRNA E6/E7 Not Detected Not Detected [facility] Comment: Methodology: Preparation Center Coordinator-Mediated Amplification This assay detects E6/E7 viral messenger RNA (mRNA) from 14 high-risk HPV types (16,18,31,33,35,39,45,51,52,56,58,59,66,68). Cervical sources are required for HPV testing. If a vaginal source from a patient who has had a total hysterectomy with removal of cervix was submitted, please contact the testing laboratory for alternative testing options. For additional information, please refer to http://education.[employer].MENA PRESTIGE/faq/FTB731x5 (This link if provided for information/ educational purposes only.) 10/12/2023 8:30 AM EDT 10/13/2023 12:30 AM EDT Narrative Resulting Agency Comment [id number] Michelle Santiago MD PATHOLOGY-INTERFACED Final Result Performing Organization Address [facility] Co de Phone Number [facility] [address] [place] [address] * (ABNORMAL) LIPID PANEL WITH REFLEX TO DIRECT LDL (06/04/2023 8:44 AM EDT) Cholesterol 98 <200 mg/dL [facility] HDL Cholesterol 44(L) > OR = 50 mg/dL [facility] Triglyceride 38 <150 mg/dL [facility] LDL Cholesterol 43 mg/dL (calc) [facility] Comment: Reference range: <100 Desirable range <100 mg/dL for primary prevention; <70 mg/dL for patients with CHD or diabetic patients with > or = 2 CHD risk factors. LDL-C is now calculated using the Megan calculation, which is a validated novel method providing better accuracy than the Friedewald equation in the estimation of LDL-C. Tyler SS et al. KEN. 2013;310(19): 5176-8730 (http://education.[employer].MENA PRESTIGE/faq/ELZ200) CHOL/HDL Ratio 2.2 <5.0 (calc) [facility] Cholesterol Non-HDL 54 <130 mg/dL (calc) [facility] Comment: For patients with diabetes plus 1 major ASCVD risk factor, treating to a non-HDL-C goal of <100 mg/dL (LDL-C of <70 mg/dL) is considered a therapeutic option. 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
== END 2025-03-10 09:36 | disposition home or self-care (01) ==
LOC: HO.PMC 09:06
PROVIDERS: PCP Internal Medicine; Referring Provider Internal Medicine; Visit Provider Internal Medicine
DX: M54.40 Lumbago with sciatica, unspecified side (principal); M51.369 Other intervertebral disc degeneration, lumbar region without mention of lumbar back pain or lower extremity pain
CPT/HCPCS: 99204

== ENCOUNTER → 2025-03-10 09:05 | Outpatient (BNVA) | payer OTHER, SELFPAY | PROVIDERS: PCP Internal Medicine; Referring Provider Internal Medicine; Visit Provider Internal Medicine | DX: M51.369 Other intervertebral disc degeneration, lumbar region without mention of lumbar back pain or lower extremity pain (principal); M54.40 Lumbago with sciatica, unspecified side | CPT/HCPCS: 99202 ==